=== PATIENT | female | born 1995 | race African-American/Black ===

== ENCOUNTER 2017-09-28 04:34 | Emergency (ER) | payer OTHER ==
[2017-09-28] MEDS ORDERED: methylPREDNISolone SOD SUCC PF 125 MG/2 ML VIAL. (05:07)
[2017-09-28] MEDS: IPRATRPIUM/ALBUTEROL 0.5/2.5MG 3 ML NEBU. NEB ×2 (05:08→06:02)
[2017-09-28] MEDS: methylPREDNISolone SOD SUCC PF 125 MG/2 ML VIAL. IV (05:10)
== END 2017-09-28 06:10 | disposition home or self-care (01) ==
LOC: ER 04:34
DX: J45.901 Unspecified asthma with (acute) exacerbation (principal)
CPT/HCPCS: 71046; 94640; 96374; 99284-25; J2930; J7620